=== PATIENT | male | born 1965 | race Caucasian/White ===

== ENCOUNTER 2016-08-02 13:15 | Inpatient (IN) | payer OTHER ==
[~2016-08-02] VITALS: Ht 190.5 cm; Wt 97.7 kg
[2016-08-02 14:06] LABS: HEMATOCRIT 35.1 % (38.0-50.0); MCH 37.8 PG (29.0-34.0); MCHC 37.3 G/DL (30.0-36.0); MCV 101.2 FL (86-99); MEAN PLAT.VOLUME 10.6 uM^3 (9.0-12.4); NRBC (%) 1.3 /100 WBC (0-0); PLATELET COUNT 98 K/uL (156-360); RBC DIS.WIDTH-SD 55.3 % (39-53); RED BLOOD COUNT 3.47 M/uL (4.00-5.50)
[2016-08-02 14:16] LABS: AMYLASE 23 IU/L (1-118); CHLORIDE 82 mEq/L (99-109); SODIUM 129 mEq/L (136-147)
[2016-08-02 14:17] LABS: GLUCOSE 135 mg/dL (70-99)
[2016-08-02 14:19] LABS: ANION GAP 18 MEQ/L (2-14)
[2016-08-02 14:21] LABS: GFR ESTIMATE (CALCULATED) 56 mL/min/; SERUM ETHYL ALCOHOL < 10 mg/dL
[2016-08-02 14:22] LABS: UREA NITROGEN (BUN) 30 mg/dL (9-23)
[2016-08-02 14:24] LABS: LIPASE 10 U/L (1.0-51.0)
[2016-08-02 14:39] LABS: POTASSIUM 2.3 mEq/L (3.7-5.4)
[2016-08-02 14:47] LABS: EOSINOPHIL (%) 0.1 % (0-5); IMMATURE GRANULOCYTE (%) 0.9 % (0.0-0.7); IMMATURE GRANULOCYTE COUNT 0.1 K/uL; INSTRUMENT ABS NEUTROPHIL CT 6.4 K/uL; LYMPHOCYTE COUNT 1.6 K/uL (1.0-2.8); MONOCYTE (%) 10.2 % (3-12); MONOCYTE COUNT 0.9 K/uL (0-0.8); NEUTROPHIL (%) 71.1 % (45-76); NEUTROPHIL COUNT 6.4 K/uL (1.8-6.4)
[2016-08-02 15:26] LABS: MAGNESIUM 1.3 mg/dL (1.3-2.7)
[2016-08-02 15:33] LABS: CREATINE KINASE 528 IU/L (1-294)
[2016-08-02] MEDS ORDERED: ALLEGRA-D 241 TABLET PO (16:59)
[2016-08-02 19:56] LABS: ADD MIUA? YES; BILIRUBIN NEGATIVE; BLOOD MODERATE; COLOR AMBER ((YELLOW)); GLUCOSE (STRIP) NEGATIVE; KETONES NEGATIVE; LEUKOCYTES NEGATIVE; NITRITE NEGATIVE; PROTEIN (STRIP) 30
[2016-08-02 20:03] LABS: BACTERIA RARE /HPF; EPITHELIAL CELLS NONE SEEN /HPF; MUCUS NONE SEEN /LPF; UCUL ADDED? NO; WHITE BLOOD CELLS 0-5 /HPF (0-5)
[2016-08-02 20:05] LABS: AMPHETAMINE NEGATIVE (500 ng/mL); BARBITURATES NEGATIVE (200 ng/mL); BENZODIAZEPINES NEGATIVE (150 ng/mL); COCAINE NEGATIVE (150 ng/mL); INTERNAL CONTROLS VALID? YES; METHADONE NEGATIVE (200 ng/mL); METHAMPHETAMINE NEGATIVE (500 ng/mL); OPIATES (MORPHINE) NEGATIVE (100 ng/mL); OXYCODONE NEGATIVE (100 ng/mL); PHENCYCLIDINE NEGATIVE (25 ng/mL); PROPOXYPHENE NEGATIVE (300 ng/mL); THC CANNABINOIDS NEGATIVE (50 ng/mL); TRICYCLIC ANTIDEPRESSANTS NEGATIVE (300 ng/mL)
[2016-08-02 20:16] VITALS: BP 93/62
[2016-08-02 22:09] VITALS: BP 95/57
[2016-08-02 23:54] LABS: CHLORIDE 88 mEq/L (99-109); SODIUM 128 mEq/L (136-147)
[2016-08-02 23:55] LABS: MAGNESIUM 1.2 mg/dL (1.3-2.7)
[2016-08-02 23:56] LABS: GLUCOSE 113 mg/dL (70-99)
[2016-08-02 23:58] LABS: ANION GAP 9 MEQ/L (2-14)
[2016-08-03] VITALS (7 sets, daily range): BP systolic 91–105; BP diastolic 58–72
[2016-08-03] LABS: ALKALINE PHOSPHATASE 43 IU/L (3-129); GFR ESTIMATE (CALCULATED) > 59 mL/min/
[2016-08-03 00:01] LABS: UREA NITROGEN (BUN) 28 mg/dL (9-23)
[2016-08-03 00:02] LABS: DIRECT BILIRUBIN 1.2 mg/dL (0.0-0.3)
[2016-08-03 00:04] LABS: POTASSIUM 2.9 mEq/L (3.7-5.4)
[2016-08-03 06:31] LABS: HEMATOCRIT 26.5 % (38.0-50.0); MCH 37.1 PG (29.0-34.0); MCHC 35.1 G/DL (30.0-36.0); MEAN PLAT.VOLUME 9.7 uM^3 (9.0-12.4); NRBC (%) 0.4 /100 WBC (0-0); PLATELET COUNT 82 K/uL (156-360); RBC DIS.WIDTH-CV 15.3 % (11.8-14.6); RBC DIS.WIDTH-SD 58.4 % (39-53)
[2016-08-03 06:39] LABS: MCV 105.6 FL (86-99); RED BLOOD COUNT 2.51 M/uL (4.00-5.50); WHITE BLOOD COUNT 5.6 K/uL (4.1-10.2)
[2016-08-03 06:46] LABS: ALKALINE PHOSPHATASE 43 IU/L (3-129); ANION GAP 6 MEQ/L (2-14); CHLORIDE 95 MEQ/L (99-109); CREATINE KINASE 347 IU/L (1-294); GFR ESTIMATE (CALCULATED) > 59 mL/min/; GLUCOSE 103 mg/dL (70-99); SAMPLE HEMOLYSIS CHECK 0; SAMPLE ICTERIC CHECK 0; SAMPLE LIPEMIA CHECK 0; SODIUM 132 MEQ/L (136-147); TOTAL BILIRUBIN 1.6 MG/DL (0.0-1.0); UREA NITROGEN (BUN) 23 mg/dL (9-23)
[2016-08-03 12:28] LABS: HEMATOCRIT 30.2 % (38.0-50.0); MCV 105.2 FL (86-99)
[2016-08-03] MEDS ORDERED: FOLIC ACID1 MG PO (23:20)
[2016-08-03] MEDS ORDERED: B-1100 MG PO (23:20)
== END 2016-08-03 13:20 | disposition left against medical advice (07) | DRG 83 ==
LOC: EME → TRA 13:15 → EME 13:15 → EDOF 18:37 → 4EAST 18:37
PROVIDERS: Emergency Medicine; Surgery
DX: S06.5X9A Traumatic subdural hemorrhage with loss of consciousness of unspecified duration, initial encounter (principal); Y09 Assault by unspecified means; F10.20 Alcohol dependence, uncomplicated; E87.8 Other disorders of electrolyte and fluid balance, not elsewhere classified; K86.3 Pseudocyst of pancreas; E83.51 Hypocalcemia; E46 Unspecified protein-calorie malnutrition; E87.1 Hypo-osmolality and hyponatremia; N17.9 Acute kidney failure, unspecified; D69.6 Thrombocytopenia, unspecified; S02.2XXA Fracture of nasal bones, initial encounter for closed fracture; E83.42 Hypomagnesemia; R00.0 Tachycardia, unspecified; E77.8 Other disorders of glycoprotein metabolism; F10.239 Alcohol dependence with withdrawal, unspecified; E87.6 Hypokalemia; W19.XXXA Unspecified fall, initial encounter; E88.09 Other disorders of plasma-protein metabolism, not elsewhere classified; R11.2 Nausea with vomiting, unspecified; S00.81XA Abrasion of other part of head, initial encounter; S00.01XA Abrasion of scalp, initial encounter; R79.89 Other specified abnormal findings of blood chemistry; Z68.26 Body mass index [BMI] 26.0-26.9, adult; Y92.59 Other trade areas as the place of occurrence of the external cause; Y99.9 Unspecified external cause status; Y92.481 Parking lot as the place of occurrence of the external cause
CPT/HCPCS: 70450; 70486; 71010; 71260; 72125; 72170; 73552; 73560; 74177; 80048; 80048 91; 80053; 80076; 81003; 82150; 82550; 83605; 83690; 83735; 85014; 85018; 85025; 85027; 86900; 86901; 93005; 99281; 99285; G0480; J0153; J3411; J3475; J3480; J7030; J7042

== ENCOUNTER 2016-08-03 22:08 | Inpatient (IN) | payer OTHER ==
[~2016-08-03] VITALS: Ht 190.5 cm; Wt 95.5 kg
[~2016-08-03 22:08] MED LIST: ALLEGRA-D 241 TABLET PO
[2016-08-03] MEDS ORDERED: B-1100 MG PO (23:20)
[2016-08-03] MEDS ORDERED: FOLIC ACID1 MG PO (23:20)
[2016-08-04 00:01] LABS: CHLORIDE 95 mEq/L (99-109); POTASSIUM 3.5 mEq/L (3.7-5.4); SODIUM 132 mEq/L (136-147)
[2016-08-04 00:02] LABS: HEMATOCRIT 31.2 % (38.0-50.0); MCH 37.3 PG (29.0-34.0); MCHC 34.9 G/DL (30.0-36.0); MCV 106.8 FL (86-99); NRBC (%) 0.4 /100 WBC (0-0); RBC DIS.WIDTH-CV 15.2 % (11.8-14.6); RBC DIS.WIDTH-SD 58.9 % (39-53); RED BLOOD COUNT 2.92 M/uL (4.00-5.50)
[2016-08-04 00:03] LABS: GLUCOSE 85 mg/dL (70-99)
[2016-08-04 00:04] LABS: ANION GAP 14 MEQ/L (2-14); WHITE BLOOD COUNT 11.3 K/uL (4.1-10.2)
[2016-08-04 00:05] LABS: TOTAL BILIRUBIN 2.2 mg/dL (0.0-1.0)
[2016-08-04 00:06] LABS: SERUM ETHYL ALCOHOL < 10 mg/dL
[2016-08-04 00:07] LABS: GFR ESTIMATE (CALCULATED) > 59 mL/min/
[2016-08-04 00:08] LABS: ALKALINE PHOSPHATASE 63 IU/L (3-129)
[2016-08-04 00:09] LABS: UREA NITROGEN (BUN) 23 mg/dL (9-23)
[2016-08-04 00:10] LABS: SALICYLATE < 5.0 MG/DL (15-30)
[2016-08-04 00:12] LABS: LIPASE 36 U/L (1.0-51.0); TOTAL CK 1063 IU/L (1-294)
[2016-08-04 00:16] LABS: CREATINE KINASE 1063 IU/L (1-294)
[2016-08-04 00:22] LABS: CK-MB 2.7 ng/mL (0.0-4.9)
[2016-08-04 01:49] LABS: PLAT.SUFFICIENCY ADEQUATE; PLATELET CLUMPS PRESENT - PLATELET COUNT APPEARS ADQ.
[2016-08-04 03:07] LABS: MAGNESIUM 1.5 mg/dL (1.3-2.7)
[2016-08-04 03:27] LABS: ADD MIUA? YES; BILIRUBIN NEGATIVE; BLOOD MODERATE; COLOR YELLOW ((YELLOW)); GLUCOSE (STRIP) NEGATIVE; KETONES 5; LEUKOCYTES NEGATIVE; NITRITE NEGATIVE; PROTEIN (STRIP) NEGATIVE; SPECIFIC GRAVITY 1.008 (1.000-1.030); UROBILINOGEN 0.2 MG/DL (0.2-1.0)
[2016-08-04 03:33] LABS: ADD MEDTOX COMMENT Y; AMPHETAMINE NEGATIVE (500 ng/mL); BARBITURATES NEGATIVE (200 ng/mL); BENZODIAZEPINES PRESUMPTIVE POSITIVE (150 ng/mL); COCAINE NEGATIVE (150 ng/mL); INTERNAL CONTROLS VALID? YES; METHADONE NEGATIVE (200 ng/mL); METHAMPHETAMINE NEGATIVE (500 ng/mL); OPIATES (MORPHINE) NEGATIVE (100 ng/mL); OXYCODONE NEGATIVE (100 ng/mL); PHENCYCLIDINE NEGATIVE (25 ng/mL); PROPOXYPHENE NEGATIVE (300 ng/mL); THC CANNABINOIDS NEGATIVE (50 ng/mL); TRICYCLIC ANTIDEPRESSANTS NEGATIVE (300 ng/mL)
[2016-08-04 03:39] LABS: BACTERIA NONE SEEN /HPF; EPITHELIAL CELLS NONE SEEN /HPF; MUCUS TRACE /LPF; UCUL ADDED? NO; WHITE BLOOD CELLS 0-5 /HPF (0-5)
[2016-08-04 04:13] LABS: BENZODIAZEPINES, URINE SCREEN POSITIVE (200 ng/mL)
[2016-08-04 04:28] VITALS: BP 88/54
[2016-08-04 05:21] LABS: HEMATOCRIT 25.3 % (38.0-50.0); MCH 37.7 PG (29.0-34.0); MCHC 35.2 G/DL (30.0-36.0); MCV 107.2 FL (86-99); MEAN PLAT.VOLUME 10.9 uM^3 (9.0-12.4); NRBC (%) 0.3 /100 WBC (0-0); PLATELET COUNT 85 K/uL (156-360); RBC DIS.WIDTH-CV 15.2 % (11.8-14.6); RBC DIS.WIDTH-SD 59.1 % (39-53); RED BLOOD COUNT 2.36 M/uL (4.00-5.50)
[2016-08-04 07:18] LABS: ALKALINE PHOSPHATASE 43 IU/L (3-129); ANION GAP 8 MEQ/L (2-14); CHLORIDE 100 MEQ/L (99-109); CREATINE KINASE 772 IU/L (1-294); DIRECT BILIRUBIN 0.5 mg/dL (0.0-0.3); GFR ESTIMATE (CALCULATED) > 59 mL/min/; GLUCOSE 83 mg/dL (70-99); IRON 21 MCG/DL (35-150); POTASSIUM 3.7 MEQ/L (3.7-5.4); SAMPLE HEMOLYSIS CHECK 0; SAMPLE ICTERIC CHECK 0; SAMPLE LIPEMIA CHECK 0; SODIUM 135 MEQ/L (136-147); TOTAL BILIRUBIN 1.3 MG/DL (0.0-1.0); UREA NITROGEN (BUN) 19 mg/dL (9-23)
[2016-08-04 07:52] VITALS: BP 100/64
[2016-08-04 10:26] LABS: FERRITIN 1414 NG/ML (22-322)
[2016-08-04 10:46] LABS: HEMATOCRIT 26.4 % (38.0-50.0); MCH 37.1 PG (29.0-34.0); MCHC 34.8 G/DL (30.0-36.0); MCV 106.5 FL (86-99); MEAN PLAT.VOLUME 9.5 uM^3 (9.0-12.4); PLATELET COUNT 112 K/uL (156-360); RBC DIS.WIDTH-CV 15.1 % (11.8-14.6); RBC DIS.WIDTH-SD 59.3 % (39-53); RED BLOOD COUNT 2.48 M/uL (4.00-5.50); WHITE BLOOD COUNT 6.8 K/uL (4.1-10.2)
[2016-08-04 10:52] LABS: POTASSIUM 3.7 mEq/L (3.7-5.4); SODIUM 137 mEq/L (136-147)
[2016-08-04 10:54] LABS: GLUCOSE 74 mg/dL (70-99)
[2016-08-04 10:55] LABS: ANION GAP 8 MEQ/L (2-14); CHLORIDE 105 mEq/L (99-109)
[2016-08-04 10:57] LABS: GFR ESTIMATE (CALCULATED) > 59 mL/min/
[2016-08-04 10:58] LABS: UREA NITROGEN (BUN) 16 mg/dL (9-23)
[2016-08-04 11:24] LABS: MAGNESIUM 1.7 mg/dl (1.3-2.7)
[2016-08-04 11:27] VITALS: BP 104/79
[2016-08-04 15:35] VITALS: BP 108/64
[2016-08-04 19:37] VITALS: BP 117/77
[2016-08-04 23:38] VITALS: BP 101/62
[2016-08-05 04:06] VITALS: BP 104/56
[2016-08-05 05:25] LABS: EOSINOPHIL (%) 7.1 % (0-5); EOSINOPHIL COUNT 0.4 K/uL (0-0.3); IMMATURE GRANULOCYTE (%) 1.2 % (0.0-0.7); IMMATURE GRANULOCYTE COUNT 0.1 K/uL; INSTRUMENT ABS NEUTROPHIL CT 2.1 K/uL; LYMPHOCYTE COUNT 1.7 K/uL (1.0-2.8); MCH 37.4 PG (29.0-34.0); MCHC 35.4 G/DL (30.0-36.0); MCV 105.7 FL (86-99); MEAN PLAT.VOLUME 9.4 uM^3 (9.0-12.4); MONOCYTE (%) 23.1 % (3-12); MONOCYTE COUNT 1.3 K/uL (0-0.8); NEUTROPHIL (%) 37.6 % (45-76); NEUTROPHIL COUNT 2.1 K/uL (1.8-6.4); NRBC (%) 0.4 /100 WBC (0-0); RBC DIS.WIDTH-CV 15.2 % (11.8-14.6); RBC DIS.WIDTH-SD 58.7 % (39-53); RED BLOOD COUNT 2.27 M/uL (4.00-5.50); WHITE BLOOD COUNT 5.6 K/uL (4.1-10.2)
[2016-08-05 05:26] LABS: PLATELET COUNT 156 K/uL (156-360)
[2016-08-05 05:34] LABS: ALKALINE PHOSPHATASE 43 IU/L (3-129); ANION GAP 5 MEQ/L (2-14); CHLORIDE 104 MEQ/L (99-109); GFR ESTIMATE (CALCULATED) > 59 mL/min/; POTASSIUM 3.4 MEQ/L (3.7-5.4); SAMPLE HEMOLYSIS CHECK 0; SAMPLE ICTERIC CHECK 0; SAMPLE LIPEMIA CHECK 0; SODIUM 136 MEQ/L (136-147); UREA NITROGEN (BUN) 7 mg/dL (9-23)
[2016-08-05 05:52] LABS: GLUCOSE 98 mg/dL (70-99)
[2016-08-05 08:21] VITALS: BP 126/80
[2016-08-05 09:10] LABS: IMM.RETIC FRACTION 27.1 % (3-19); RETIC HGB EQUIVALENT 39.8 (28-36); RETICULOCYTE COUNT 3.1 % (0.5-1.8)
[2016-08-05 10:06] LABS: FERRITIN 1335 NG/ML (22-322); IRON 23 MCG/DL (35-150)
[2016-08-05 11:23] LABS: HBSG INDEX 0.24
[2016-08-05 11:24] LABS: ANTI-HEPATITIS A VIRUS (IGM) Nonreactive; HAV INDEX 0.11; HPCA INDEX 0.15
[2016-08-05 11:26] LABS: ANTI-HEPATITIS B CORE (IGM) Nonreactive; HBC IgM INDEX 0.06
[2016-08-05 12:17] VITALS: BP 117/77
[2016-08-05 13:46] LABS: CREATINE KINASE 463 IU/L (1-294)
[2016-08-05 16:03] LABS: INTERNAL CONTROL VALID? YES
[2016-08-05 16:16] VITALS: BP 144/84
[2016-08-05 19:59] VITALS: BP 113/66
[2016-08-06 00:20] VITALS: BP 100/60
[2016-08-06 04:01] VITALS: BP 130/86
[2016-08-06 05:03] LABS: CHLORIDE 107 mEq/L (99-109); SODIUM 136 mEq/L (136-147)
[2016-08-06 05:05] LABS: GLUCOSE 110 mg/dL (70-99)
[2016-08-06 05:07] LABS: ANION GAP 7 MEQ/L (2-14)
[2016-08-06 05:09] LABS: ALKALINE PHOSPHATASE 54 IU/L (3-129); GFR ESTIMATE (CALCULATED) > 59 mL/min/
[2016-08-06 05:10] LABS: EOSINOPHIL (%) 5.1 % (0-5); EOSINOPHIL COUNT 0.3 K/uL (0-0.3); HEMATOCRIT 26.1 % (38.0-50.0); IMMATURE GRANULOCYTE (%) 2.5 % (0.0-0.7); IMMATURE GRANULOCYTE COUNT 0.2 K/uL; INSTRUMENT ABS NEUTROPHIL CT 2.2 K/uL; LYMPHOCYTE COUNT 1.9 K/uL (1.0-2.8); MCH 37.7 PG (29.0-34.0); MCHC 35.6 G/DL (30.0-36.0); MCV 105.7 FL (86-99); MEAN PLAT.VOLUME 9.8 uM^3 (9.0-12.4); MONOCYTE (%) 24.6 % (3-12); MONOCYTE COUNT 1.5 K/uL (0-0.8); NEUTROPHIL (%) 36.1 % (45-76); NEUTROPHIL COUNT 2.2 K/uL (1.8-6.4); NRBC (%) 0.3 /100 WBC (0-0); PLATELET COUNT 278 K/uL (156-360); RBC DIS.WIDTH-CV 15.6 % (11.8-14.6); RBC DIS.WIDTH-SD 59.8 % (39-53); RED BLOOD COUNT 2.47 M/uL (4.00-5.50); UREA NITROGEN (BUN) 4 mg/dL (9-23); WHITE BLOOD COUNT 6.1 K/uL (4.1-10.2)
[2016-08-06 05:12] LABS: POTASSIUM 4.2 mEq/L (3.7-5.4); TOTAL BILIRUBIN 0.9 mg/dL (0.0-1.0)
[2016-08-06 08:05] VITALS: BP 116/69
[2016-08-06 11:46] VITALS: BP 106/67
[2016-08-06] MEDS ORDERED: Chronulac,Cephulac,E PO (12:33)
[2016-08-06] MEDS ORDERED: CYANOCOBALAM1000 MCG PO (12:33)
[2016-08-06] MEDS ORDERED: Thiamine,Vitamin B1 PO (12:33)
[2016-08-06] MEDS ORDERED: FERROUS SULFAT325 MG PO (12:33)
[2016-08-06] MEDS ORDERED: FAMOTIDINE20 MG PO (12:33)
[2016-08-06 15:40] VITALS: BP 120/84
== END 2016-08-06 18:30 | disposition home or self-care (01) | DRG 91 ==
LOC: EME 22:08 → EDOF 08-04 02:09 → 3EAST 08-04 02:09
PROVIDERS: Emergency Medicine; Hospitalist
PROC: HZ2ZZZZ Detoxification Services for Substance Abuse Treatment (ICD-10-PCS; principal; 2016-08-04)
DX: G92 Toxic encephalopathy (principal); F10.231 Alcohol dependence with withdrawal delirium; T51.0X1A Toxic effect of ethanol, accidental (unintentional), initial encounter; R00.0 Tachycardia, unspecified; G31.2 Degeneration of nervous system due to alcohol; K70.10 Alcoholic hepatitis without ascites; M62.82 Rhabdomyolysis; S06.6X0A Traumatic subarachnoid hemorrhage without loss of consciousness, initial encounter; S06.5X0A Traumatic subdural hemorrhage without loss of consciousness, initial encounter; S30.1XXA Contusion of abdominal wall, initial encounter; S02.2XXA Fracture of nasal bones, initial encounter for closed fracture; Y09 Assault by unspecified means; E87.6 Hypokalemia; E87.1 Hypo-osmolality and hyponatremia; E86.0 Dehydration; D62 Acute posthemorrhagic anemia; D69.6 Thrombocytopenia, unspecified; K86.2 Cyst of pancreas; K80.80 Other cholelithiasis without obstruction; Z59.0 Homelessness
CPT/HCPCS: 70450; 71010; 74176; 80048; 80048 91; 80053; 80074; 80076; 81003; 82140; 82272; 82550; 82550 91; 82553; 82607; 82728; 83540; 83690; 83735; 84466; 84999; 85025; 85027; 85045; 99202; 99281; 99285; G0480; J1630; J2060; J3411; J3475; J3480; J7030; S0028